=== PATIENT | female | born 1930 | race American Indian/Alaskan Native ===

== ENCOUNTER 2016-07-29 18:14 | Inpatient (IN) | payer MEDICARE ==
[2016-07-29] MEDS ORDERED: DUONEB 0.5 MG-3 MG/3 ML SOLN IH ONE (22:37)
[2016-07-29] MEDS ORDERED: DELTASONE PO ONE (22:37)
[2016-07-29 23:21] LABS: Basophils % (Auto) 0.4 % (0.0-1.8); Eosinophils % (Auto) 1.9 % (0.0-4.3); Hematocrit 40.7 % (30.3-42.9); Hemoglobin 13.4 gm/dl (10.1-14.3); Mean Corpuscular HGB Conc 33 % (30-34); Mean Corpuscular Hemoglobin 28 pg (28-32); Mean Corpuscular Volume 85 fl (79-97); Platelet Count 284 K/mm3 (140-440); Red Blood Count 4.82 M/mm3 (3.65-5.03); Red Cell Distribution Width 14.7 % (13.2-15.2); White Blood Count 10.6 K/mm3 (4.5-11.0)
[2016-07-29 23:39] LABS: Creatine Kinase MB 2.4 ng/mL (0.0-4.0)
[2016-07-29 23:41] LABS: Anion Gap 19 mmol/L; Blood Urea Nitrogen 16 mg/dL (7-17); Carbon Dioxide 24 mmol/L (22-30); Chloride 100.8 mmol/L (98-107); Creatine Kinase 235 units/L (30-135); Glucose 105 mg/dL (65-100); Potassium 3.8 mmol/L (3.6-5.0); Sodium 140 mmol/L (137-145)
[2016-07-29 23:42] LABS: INR 1.07 (0.87-1.13)
--- NOTE | 2016-07-30 00:40 | Emergency Department Report ---
ED Shortness of Breath HPI - General Chief Complaint: Adult Asthma Stated Complaint: ZEE Time Seen by Provider: 07/29/16 22:27 Source: patient Mode of arrival: Ambulatory Limitations: No Limitations - History of Present Illness Initial Comments: 85-year-old female the past medical history asthma, hypertension, and anxiety presents to the hospital complaints of shortness of breath for 3 days. Patient complains of dyspnea on exertion. In triage patient had expiratory wheeze in the left upper lung. No treatments were given prior to my evaluation. Patient denies pain, calf tenderness, fever, or cough. Intermittent ankle and lower extremity edema reported. No previous history intubations. - Related Data Allergies Allergy/AdvReac Type Severity Reaction Status Date / Time Penicillins AdvReac Itching Verified 07/29/16 18:36 ED Review of Systems ROS: Stated complaint: ZEE Other details as noted in HPI Comment: All other systems reviewed and negative Other: Constitutional: No fevers chills Eyes: No eye pain visual changes ENT: No ear pain or throat pain Neck: Denies pain Respiratory: Denies cough wheezing Cardiovascular: Denies chest pain, palpitations, syncope GI: Denies abdominal pain, nausea, vomiting, diarrhea : Denies dysuria Musculoskeletal: Denies back pain Skin: Denies rash, lesions, erythema Neurologic: Denies headache, numbness, weakness Psychiatric: Denies suicidal ideation, hallucinations ED Past Medical Hx - Past Medical History Previous Medical History?: Yes Hx Hypertension: Yes Hx Psychiatric Treatment: Yes (Anxiety) Hx Asthma: Yes - Surgical History Past Surgical History?: No - Social History Smoking Status: Never Smoker Substance Use Type: None ED Physical Exam - General Limitations: No Limitations - Other Other exam information: General: No limitations, patient is alert in no acute distress Head exam: Atraumatic, normocephalic Eyes exam: Normal appearance ENT: Moist mucous membrane, normal oropharynx Neck exam: Normal inspection, full range of motion, no meningismus nontender Respiratory exam: Clear to auscultation bilateral, no wheezes, rales, crackles Cardiovascular: Normal rate and rhythm Abdomen: Soft, nondistended, and nontender, with normal bowel sounds, no rebound, or guarding Extremity: Full range of motion normal inspection no deformity, no calf tenderness or edema Back: Normal Inspection, full range of motion, no tenderness Neurologic: Alert, oriented x3, cranial nerves intact, no motor or sensory deficit Psychiatric: normal affect, normal mood Skin: Warm, dry, intact ED Course Vital Signs 07/29/16 07/29/16 18:30 22:19 Temperature 98.8 F Pulse Rate 78 Respiratory 22 20 Rate Blood Pressure 145/78 O2 Sat by Pulse 100 100 Oximetry - Reevaluation(s) Reevaluation #1: 07/30/16 00:59 Patient did not have any wheezing on my initial exam. Patient received albuterol and by mouth prednisone with improvement and shortness of breath. 07/30/16 01:00 - Consultations Consultation #1: 07/30/16 00:55 case d/w DR. Mullen pulmonary, rec admission, npo, thoracentesis in am ED Medical Decision Making - Lab Data Result diagrams: 07/29/16 23:01 07/29/16 23:01 Lab Results 07/29/16 07/29/16 07/29/16 Range/Units 23:01 23:01 23:01 WBC 10.6 (4.5-11.0) K/mm3 RBC 4.82 (3.65-5.03) M/mm3 Hgb 13.4 (10.1-14.3) gm/dl Hct 40.7 (30.3-42.9) % MCV 85 (79-97) fl MCH 28 (28-32) pg MCHC 33 (30-34) % RDW 14.7 (13.2-15.2) % Plt Count 284 (140-440) K/mm3 Lymph % (Auto) 42.3 H (13.4-35.0) % [place] % (Auto) 9.3 H (0.0-7.3) % Eos % (Auto) 1.9 (0.0-4.3) % Baso % (Auto) 0.4 (0.0-1.8) % Lymph # 4.5 (1.2-5.4) K/mm3 [place] # 1.0 H (0.0-0.8) K/mm3 Eos # 0.2 (0.0-0.4) K/mm3 Baso # 0.0 (0.0-0.1) K/mm3 Seg Neutrophils % 46.1 (40.0-70.0) % Seg Neutrophils # 4.9 (1.8-7.7) K/mm3 PT 13.8 (12.2-14.9) Sec. INR 1.07 (0.87-1.13) Sodium 140 (137-145) mmol/L Potassium 3.8 (3.6-5.0) mmol/L Chloride 100.8 (98-107) mmol/L Carbon Dioxide 24 (22-30) mmol/L Anion Gap 19 mmol/L BUN 16 (7-17) mg/dL Creatinine 0.8 (0.7-1.2) mg/dL Estimated GFR > 60 ml/min BUN/Creatinine Ratio 20.00 % Glucose 105 H (65-100) mg/dL Calcium 8.0 L (8.4-10.2) mg/dL Total Creatine Kinase 235 H (30-135) units/L CK-MB (CK-2) 2.4 (0.0-4.0) ng/mL CK-MB (CK-2) Rel Index 1.0 (0-4) Troponin T 0.015 (0.00-0.029) ng/mL NT-Pro-B Natriuret Pep 54.66 (0-900) pg/mL - EKG Data -: EKG Interpreted by Me (nsr rate71, LAS, no stemi/t inv) - Radiology Data Radiology results: image reviewed (cxr: left pleural effusion (aprox 25%) read by me. ) - Medical Decision Making Patient has a left pleural effusion. Case was discussed with utilization management um nurse technical marketing engineer is Dr. Mullen. Recommend nothing by mouth for possible thoracentesis in the a.m. Patient be admitted to the hospitalist. Otherwise stable with improvement in respiratory symptoms after nebulized treatment - Differential Diagnosis asthma, pneumonia, PE, effusion, unstable angina Critical Care Time: No Critical care attestation.: If time is entered above; I have spent that time in minutes in the direct care of this critically ill patient, excluding procedure time. ED Disposition Clinical Impression: Dyspnea, Pleural effusion, left, Asthma exacerbation Disposition: OP ADMITTED IP TO THIS HOSP Is pt being admited?: Yes Condition: Stable Time of Disposition: 00:40 (Dr. Dacosta/hosp)
[2016-07-30] MEDS ORDERED: ZOFRAN IV PRN (02:41)
[2016-07-30] MEDS ORDERED: TYLENOL PO PRN (02:41)
[2016-07-30] MEDS ORDERED: MILK OF MAGNESIA PO PRN (02:41)
[2016-07-30] MEDS ORDERED: DULCOLAX PR PRN (02:41)
--- NOTE | 2016-07-30 02:45 | History and Physical Report ---
History of Present Illness Date of examination: 07/30/16 History of present illness: 85-year-old woman with a history of hypertension, asthma, depression comes emergency room complaints of shortness of breath started today. She denies any PND, orthopnea, edema, chest pain, previous history of fluid on lungs . s/p prednisone and nebulizer treatment in ER. Patient denies chest pain, palpitation, cough, abdominal pain, hematochezia, dysuria, frequency, focal weakness, dysarthria, fever chills, polydipsia polyuria, hot or cold intolerance, easy bruisability, or rash or bleeding from mucosal membrane, rhinorrhea, epistaxis, earache, tinnitus, blurry vision, eye discharge, anxiety, depression. Other review of systems negative PAST SURGICAL HISTORY: Vein stripping SOCIAL HISTORY: Denies alcohol, tobacco, drugs FAMILY HISTORY: Hypertension Medications and Allergies Allergies Allergy/AdvReac Type Severity Reaction Status Date / Time egg Allergy Vomiting Verified 07/30/16 22:43 Penicillins AdvReac Itching Verified 07/29/16 18:36 Home Medications Medication Instructions Recorded Confirmed Last Taken Type Losartan/Hydrochlorothiazide 1 tab PO QDAY 07/30/16 07/30/16 07/29/16 History [Hyzaar 50-12.5 TAB] NIFEdipine XL [Procardia Xl] 60 mg PO QDAY 07/30/16 07/30/16 07/29/16 History Sertraline HCl [Zoloft] 50 mg PO DAILY 07/30/16 07/30/16 07/29/16 History ALBUTEROL Inhaler [ProAir HFA 2 puff IH QID PRN #1 can 08/01/16 Unknown Rx Inhaler] Fluticasone/Salmeterol [Advair 1 puff IH BID #1 blst.w.dev 08/01/16 Unknown Rx Diskus 100-50 mcg] Levofloxacin [Levaquin TAB] 500 mg PO QDAY #5 tablet 08/01/16 Unknown Rx Prednisone [predniSONE 10 mg 10 mg PO .TAPER #1 tab.ds.pk 08/01/16 Unknown Rx (6-Day Pack, 21 Tabs)] Exam - Physical Exam Narrative exam: Gen. appearance: Patient lying in bed, no apparent distress HEENT: Normocephalic, atraumatic, pupils equally round and reactive to light, extraocular movement intact, and no sclericterus,. No JVD or thyromegaly or nodule,neck supple, no carotid bruit ,mucous membranes moist, no exudate or erythema Heart: S1, S2, regular rate and rhythm Lungs: Clear to auscultation bilaterally, breathing comfortable Abdomen: Positive bowel sounds, nontender, nondistended, no organomegaly Extremity: No edema, cyanosis, clubbing Skin: No rash, nodules, warm, dry Neuro: Oriented 3, cranial nerves II-12 intact, speech is fluent, motor and sensory intact - Constitutional Vitals: Temp Pulse Resp BP Pulse Ox 98.8 F 83 18 145/77 97 07/29/16 18:30 07/30/16 02:07 07/30/16 02:07 07/30/16 02:07 07/30/16 02:07 Results - Labs CBC & Chem 7: 08/01/16 04:21 08/01/16 04:21 Labs: Abnormal lab results 07/29/16 07/29/16 Range/Units 23:01 23:01 Lymph % (Auto) 42.3 H (13.4-35.0) % [place] % (Auto) 9.3 H (0.0-7.3) % [place] # 1.0 H (0.0-0.8) K/mm3 Glucose 105 H (65-100) mg/dL Calcium 8.0 L (8.4-10.2) mg/dL Total Creatine Kinase 235 H (30-135) units/L - Imaging and Cardiology EKG: image reviewed Chest x-ray: image reviewed Assessment and Plan Left pleural effusion COPD exacerbation, probable Hypertension Depression Admit to medicine Consult pulmonary for thoracentesis, check cardiac enzymes Start prednisone, nebulizer treatment continue appropiateoutpatient medications and start DVT prophylaxis
[2016-07-30] MEDS ORDERED: PROAIR IH PRN (02:50)
[2016-07-30] MEDS ORDERED: PROVENTIL IH PRN (03:19)
[2016-07-30] MEDS ORDERED: PROVENTIL IH SCH (04:00)
[2016-07-30 04:26] LABS: Creatine Kinase MB 2.3 ng/mL (0.0-4.0)
[2016-07-30 04:27] LABS: Creatine Kinase 233 units/L (30-135)
--- NOTE | 2016-07-30 07:47 | Admit Criteria Form ---
Admission Criteria Documentation: PLEURAL EFFUSION Clinical Indications for Admission to Inpatient Care (Place 'X' for any and all applicable criteria): Admission is indicated for ANY ONE of the following (1)(2)(3): [ ]I. Pneumonia-related effusion requiring drainage as indicated by ANY ONE of the following [A]: [ ]a) Large pleural effusion (symptomatic or greater than one-half of hemithorax) [ ]b) Loculated effusion [ ]c) Pleural thickening [ ]d) Pleural fluid analysis results, including ANY ONE of the following: [ ]i) Positive Gram stain or culture for bacteria [ ]ii) Pus [ ]iii) pH less than 7.20 [ X]II. Inpatient admission required rather than observation care (Also use Pleural Effusion: Observation Care criteria as appropriate) because of ANY ONE of the following: [ ]a) Hemodynamic instability that is severe or persistent [ ]b) Respiratory distress that is severe or persistent [ ]c) Complication of drainage (e.g., pneumothorax) that requires inpatient care [ ]d) Etiology that requires inpatient care (e.g., pulmonary embolism , trauma) [ ]e) Severe pain requiring acute inpatient management [ ]f) Supplemental O2 or respiration drug for over 24 hrs that are performable only in an inpatient setting [ ]g) Chest tube placement with active evacuation (e.g., suction, drainage) [ ]h) Pulmonary artery catheter monitoring [ ]i) Epidural analgesia (8) [ ]j) Continuous IV infusion of anticoagulation, platelet inhibitor, vasoactive, or antiarrhythmic medication. [X ]k) Other condition, treatment or monitoring requiring inpatient admission [ ]l) Immediate inpatient surgery [ ]III. Hemothorax [ ]IV. Empyema [ ]V. Pleural effusion with concomitant pneumothorax [ ]. Recurrent or malignant pleural effusion requiring pleurodesis (4) Extended stay beyond goal length of stay may be needed for (27)(28): [ ]a) Empyema or complicated parapneumonic effusion (24)(29) [ ]b) Malignant pleural effusion (4) [ ]c) Pleural effusion due to trauma or perforated esophagus [ ]d) Pleural effusion due to pulmonary embolism (30) [ ]e) Clinically significant re-expansion pulmonary edema [ ]f) Hemothorax [ ]g) Renal failure [ ]h) Trapped lung (e.g., benign or malignant thickened pleura preventing lung re-expansion) (31) [ ]i) Underlying etiology necessitates ongoing inpatient care (e.g., pneumonia, heart failure, malignancy) [ ]j) Complications of thoracentesis, thoracostomy tube, or pleural cath. placement The original [facility] content created by [facility] has been revised. The portions of the content which have been revised are identified through the use of italic text or in bold, and [facility] has neither reviewed nor approved the modified material. All other unmodified content is copyright [facility]. Please see references footnoted in the original [facility] [employer] [employer] edition 2016 Admission Criteria Met: Yes
[2016-07-30] MEDS ORDERED: PULMICORT IH ONE (08:02)
[2016-07-30] MEDS ORDERED: DUONEB 0.5 MG-3 MG/3 ML SOLN IH ONE (08:02)
[2016-07-30] MEDS: DUONEB 0.5 MG-3 MG/3 ML SOLN IH SCH ×3 (08:09→20:38)
[2016-07-30] MEDS: PULMICORT IH SCH ×2 (08:09→20:38)
[2016-07-30] MEDS: BROVANA NEBU IH SCH ×2 (08:10→20:38)
[2016-07-30 09:29] LABS: Creatine Kinase MB 2.2 ng/mL (0.0-4.0)
[2016-07-30 09:31] LABS: Creatine Kinase 241 units/L (30-135)
--- NOTE | 2016-07-30 09:50 | XRay Report ---
CHEST 2 VIEWS INDICATION: Shortness of breath. COMPARISON: None similar at this institution. FINDINGS: PA and lateral chest radiographs demonstrate top normal heart size. Aortic knob calcifications. Left lower lung densities may represent any combination of atelectasis/scarring/small pleural fluid with partly obscured left hemidiaphragm. A large, approximately 12-13 cm hiatal hernia suspected. Clear remainder lungs. Demineralized bones with mild, age-appropriate degenerative changes. CONCLUSION: Left lower lung opacities suspected in this patient with a large hiatal hernia, as described. Please correlate. Thank you for the opportunity to participate in this patient's care.
[2016-07-30] MEDS ORDERED: NON-FORMULARY (Fluticasone/Salmeterol [Advair Diskus 100-50 Mcg] 1 PUFF) IH SCH (10:00)
--- NOTE | 2016-07-30 11:22 | Consultation ---
History of Present Illness Consult date: 07/30/16 Requesting physician: CECIL MORENO Reason for consult: pneumonia, pleural effusion History of present illness: PULMONARY/CCM CONSULT NOTE (Full dictation # [id number]) Please see dictated notes for full details Medications and Allergies Allergies Allergy/AdvReac Type Severity Reaction Status Date / Time Penicillins AdvReac Itching Verified 07/29/16 18:36 Home Medications Medication Instructions Recorded Confirmed Last Taken Type ALBUTEROL Inhaler [Proair] 2 puff IH QID PRN 07/30/16 07/30/16 07/29/16 History Fluticasone/Salmeterol [Advair 1 puff IH BID 07/30/16 07/30/16 07/29/16 History Diskus 100-50 mcg] Losartan/Hydrochlorothiazide 1 tab PO QDAY 07/30/16 07/30/16 07/29/16 History [Hyzaar 50-12.5 TAB] NIFEdipine XL [Procardia Xl] 60 mg PO QDAY 07/30/16 07/30/16 07/29/16 History Sertraline HCl [Zoloft] 50 mg PO DAILY 07/30/16 07/30/16 07/29/16 History Active Meds: Active Medications Acetaminophen (Tylenol) 650 mg PO Q4H PRN PRN Reason: Pain MILD(1-3)/Fever >100.5/[place] Albuterol (Proventil) 2.5 mg IH QIDRT PRN PRN Reason: Shortness Of Breath Albuterol/Ipratropium (Duoneb 0.5 Mg-3 Mg/3 Ml Soln) 1 ampul IH Q6HRT [facility] Last Admin: 07/30/16 08:09 Dose: 1 ampul Arformoterol Tartrate (Brovana Nebu) 15 mcg IH Q12HRT [facility] Last Admin: 07/30/16 08:10 Dose: Not Given Bisacodyl (Dulcolax) [address] QDAY PRN PRN Reason: Constipation unrelieved by MOM Budesonide (Pulmicort) 0.5 mg IH Q12HRT [facility] Last Admin: 07/30/16 08:09 Dose: 0.5 mg Enoxaparin Sodium (Lovenox) 40 mg SUB-Q QDAY [facility] Hydrochlorothiazide (Hctz) 12.5 mg PO QDAY [facility] Losartan Potassium (Cozaar) 50 mg PO QDAY [facility] Magnesium Hydroxide (Milk Of Magnesia) 30 ml PO Q4H PRN PRN Reason: Constipation Nifedipine (Procardia Xl) 60 mg PO QDAY [facility] Ondansetron HCl (Zofran) 4 mg IV Q8H PRN PRN Reason: N/V unrelieved by Reglan Prednisone (Deltasone) 60 mg PO QDAY [facility] Sertraline HCl (Zoloft) 50 mg PO DAILY [facility] Physical Examination Vital signs: Vital Signs Temp Pulse Resp BP Pulse Ox 98.8 F 78 22 145/78 100 07/29/16 18:30 07/29/16 18:30 07/29/16 18:30 07/29/16 18:30 07/29/16 18:30 Results - Laboratory Findings CBC and BMP: 07/29/16 23:01 07/29/16 23:01 PT/INR, D-dimer PT 13.8 Sec. (12.2-14.9) 07/29/16 23:01 INR 1.07 (0.87-1.13) 07/29/16 23:01 Abnormal lab findings: Abnormal Labs 07/30/16 07/30/16 02:55 08:54 Total Creatine Kinase 233 H 241 H
[2016-07-30] MEDS: DELTASONE PO SCH (13:00)
[2016-07-30] MEDS: HCTZ PO SCH (13:00)
[2016-07-30] MEDS: LOVENOX SUB-Q SCH (13:00)
[2016-07-30] MEDS: COZAAR PO SCH (13:57)
[2016-07-30] MEDS: PROCARDIA XL PO SCH (13:59)
[2016-07-30] MEDS: ZOLOFT PO SCH (14:01)
--- NOTE | 2016-07-30 14:42 | Event Note ---
Date: 07/30/16 Patient was admitted for shortness of breath, left pleural effusion. Patient was on IV antibiotics, breathing treatment. Patient showed some improvement. Pulmonary consult is placed.
[2016-07-30] MEDS: LEVAQUIN 750MG/150ML 750 MG/150 ML BAG IV SCH (14:50)
[2016-07-30 20:01] LABS: Total Protein 8.3 g/dL (6.3-8.2)
[2016-07-30] MEDS ORDERED: NACL 0.45% 1000 ML 1,000 ML IV SCH (21:00)
[2016-07-31] MEDS: DUONEB 0.5 MG-3 MG/3 ML SOLN IH SCH ×4 (02:16→19:32)
[2016-07-31] MEDS ORDERED: NACL ONE (03:04)
--- NOTE | 2016-07-31 04:05 | Cat Scan Report ---
FINAL REPORT PROCEDURE: CT ANGIO CHEST TECHNIQUE: Computerized tomographic angiography of the chest was performed after the IV injection of iodinated nonionic contrast including image processing. The image data was postprocessed using 2-dimensional multiplanar reformatted (MPR) and 3-dimensional (MIP and/or volume rendered) techniques. HISTORY: Chest Pain and SOB; Abnormal CXR COMPARISON: No prior studies are available for comparison. FINDINGS: Heart and pericardium: Heart size is slightly pronounced. No pericardial effusion.. Thoracic aorta: Normal. Pulmonary vasculature: Normal. Lymph nodes: No enlarged thoracic lymph nodes. Lungs: There is atelectasis and scar formation in the left lower lung. Mild chronic obstructive changes are identified throughout both lungs. The central airway is patent. Pleural space: No effusion, thickening, or pneumothorax. Musculoskeletal structures: No significant abnormality. Upper abdominal structures: There is a large fixed hiatal hernia identified this involves the entire stomach in this cavity. This does encroach on the left lower lung with some elevation of the left hemidiaphragm.. IMPRESSION: There is no evidence of pulmonary arterial emboli. Atelectasis and scarring in the left lower lung. Chronic obstructive pulmonary changes identified throughout both lungs. Large hiatal hernia identified involves the entire stomach in this cavity.
--- NOTE | 2016-07-31 04:45 | Consultation ---
CONSULTING PHYSICIANS: Emergency Room physician, Dr. Beatrice Lora and Dr. Rich. REASON FOR CONSULTATION: Shortness of breath, left pleural effusion. CHIEF COMPLAINT AND HISTORY OF PRESENT ILLNESS: The patient is an 85-year-old -[place] female with past medical history significant for a diagnosis of asthma, but she states she has not had an asthma attack for really over 10 years, also history of anxiety, came to the hospital complaining about 3 days of increasing shortness of breath, dyspnea on exertion. She was wheezing in the Emergency Room in the left upper lung rm. She mentioned occasional ankle and lower extremity edema. She was evaluated in the Emergency Room, a chest x-ray was done, it was reported as showing a left pleural effusion/infiltrate and hence the call. When I stopped by to see the lady, she was resting in bed, still a little bit of orthopnea, felt a little bit better. She stated she had a cough. It was productive of clear phlegm. She did say that there were some sick contacts at home. She denied overwhelming fevers or chills. Denied nausea, vomiting, or overt aspiration. She denies any history of tobacco use or abuse. Denies significant weight loss. Denies any new lumps, bumps, or swellings on her body. That really is as much of the history of presentation. However, as a result of the age and the symptoms and the report given to me, I did discuss with the emergency physician that we need to workup the pleural effusion a little bit more. PAST MEDICAL HISTORY: Again, significant for history of hypertension, asthma, depression. She is obese. PAST SURGICAL HISTORY: She has had vein stripping before. MEDICATIONS: She was on at the time I stopped by to see her, according to the medication administration record included the following: Tylenol 650 mg p.o. q.4h. p.r.n. mild pain, DuoNeb treatments nebulized q.6h, Brovana 15 mcg inhaled q.12h., Pulmicort 0.5 mg inhaled q.12h., Lovenox 40 mg subcutaneous daily, hydrochlorothiazide mg p.o. daily, Levaquin 750 mg IV daily, Cozaar 50 mg p.o. daily, p.r.n. milk of magnesia, nifedipine XL 60 mg p.o. daily, Zofran 4 mg IV q.8h. p.r.n. nausea and vomiting, prednisone 60 mg p.o. daily, and Zoloft 50 mg p.o. daily. ALLERGIES: Penicillin, nature of this allergy is unknown. DIET: Obese lady. Denies significant weight loss or gain in the preceding few weeks to months. FAMILY AND SOCIAL HISTORY: Lives in the community. Denies alcohol, tobacco, or illicit drug use or abuse. REVIEW OF SYSTEMS: No loss of consciousness. No new onset seizures. No new onset focal weakness. No gross hematochezia or melena. No gross hematuria or dysuria. No hematemesis. No hemoptysis. No palpitations. Complete review of systems obtained. Pertinent positives and/or negatives as in body of history above, otherwise noncontributory. PHYSICAL EXAMINATION: VITAL SIGNS: At presentation, she is afebrile, temperature 98.8, pulse was 78, respiratory rate is 22, blood pressure 145/78, oxygen sats are 100%, inspired oxygen concentration was not recorded. HEAD, EYES, EARS, NOSE, AND THROAT: Pupils are equal, round 4 mm, reactive to light. Extraocular muscle movements are intact. Grossly, no palpable lymph nodes in the supraclavicular or submandibular lymph node chains. LUNGS: Auscultation of both lung rm revealed diminished left lower lobe air entry. Occasional left lower lobe rales. No wheezing. She does have a prolonged expiratory phase and distant breath sounds. HEART: Heart sounds 1 and 2 are heard. They were regular in rate and rhythm at the time of my evaluation. ABDOMEN: Soft, full, bowel sounds are positive, nontender. EXTREMITIES: Without overt digital clubbing, cyanosis, or pedal edema. NEUROLOGIC: The exam was grossly nonfocal. LABORATORY DATA: From my review are as follows: White cell count 10,600, hemoglobin 13.4, hematocrit 40.7, platelet count 284. INR 1.07. Serum sodium was 140, potassium 3.8, chloride 101, bicarbonate 24, BUN 16, creatinine 0.8, glucose 105. CPK was up at 235. Otherwise, cardiac enzymes within normal limits. BNP was within normal limits. Radiographic studies were done. I have reviewed the radiologist's interpretation. I am attempting to pull up the chest x-ray here. He mentions the left lower lobe densities which may be a combination of atelectasis, scarring/small pleural fluid. The x-ray does show, I do feel certainly a pleural effusion on that side and then I cannot rule out again an element of atelectasis, it is going to be small volume, but no gross pneumothorax, no gross bony fracture. ASSESSMENT AND PLAN: In discussing with her further, she states she did fall about a month ago, but that the pain has resolved. Denied any hemoptysis at that time. While she does not have much of cigarette smoking history with her age, I think this process needs to be worked up a little bit further. In the absence of a significant amount of pleural effusion, I will go ahead and order a CT scan of the chest to better evaluate. Right now, I will do it with IV contrast, so I can also evaluate the mediastinum better. The plan will be ____ to drain the fluid before the CT scan, but I am not so sure if we are going to get a lot of fluid to drain. At the same time, spitting will be ordered if she is able to cough up some. Oxygen will be titrated to keep sats greater than or equal to about 92%-94%. A thoracentesis will be ordered, necessary studies. Empiric antibiotic therapy should continue. I will order a CRP level to evaluate the true infectious potential of this process. She is going to be put on GI prophylaxis. I should mention the CT scan will also help look for any rib fractures or small pneumothorax. Flu and pneumonia vaccination will be per protocol. Thank you very much for the consult Dr. Rich, Dr. Lora. We will follow along and make further recommendations as the picture progresses/becomes clearer. JOB# [id number] AJOlya/NTS
[2016-07-31 06:30] LABS: Basophils % (Auto) 0.1 % (0.0-1.8); Hematocrit 39.1 % (30.3-42.9); Hemoglobin 12.7 gm/dl (10.1-14.3); Mean Corpuscular HGB Conc 33 % (30-34); Mean Corpuscular Hemoglobin 28 pg (28-32); Mean Corpuscular Volume 84 fl (79-97); Platelet Count 277 K/mm3 (140-440); Red Blood Count 4.64 M/mm3 (3.65-5.03); White Blood Count 12.2 K/mm3 (4.5-11.0)
[2016-07-31 06:33] LABS: Anion Gap 20 mmol/L; Blood Urea Nitrogen 18 mg/dL (7-17); Calcium 8.2 mg/dL (8.4-10.2); Carbon Dioxide 22 mmol/L (22-30); Chloride 101.3 mmol/L (98-107); Glucose 172 mg/dL (65-100); Potassium 3.7 mmol/L (3.6-5.0); Sodium 140 mmol/L (137-145)
[2016-07-31] MEDS: BROVANA NEBU IH SCH ×2 (09:11→19:32)
[2016-07-31] MEDS: PULMICORT IH SCH ×2 (09:11→19:32)
--- NOTE | 2016-07-31 10:29 | Progress Note ---
Assessment and Plan - Patient Problems (1) Acute respiratory distress Current Visit: Yes Status: Acute Plan to address problem: - improved - off oxygen - continue ТАТЬЯНА, LABA & ICS - taper off prednisone - CT reveals hiatal hernia and LLL scarring/ compressive atelectasis with nothing acute looking - complete empiric AB's course (5 days) (2) Abnormal CXR (chest x-ray) Current Visit: Yes Status: Acute Plan to address problem: - atelectasis and scarring related to hiatal hernia - no rib fracture - as above otherwise (3) Asthma exacerbation Current Visit: Yes Status: Acute Plan to address problem: - as for respiratory distress above (4) Pleural effusion, left Current Visit: Yes Status: Acute Plan to address problem: - none of significance on CT chest Subjective Date of service: 07/31/16 Principal diagnosis: Acute Resp Distress; Pneumonia Interval history: Seen and examined at bedside; 24 hour events reviewed; nursing and respiratory care staff consulted; no adverse overnight events reported to me; resting peacefuly in bed; looks and feels better; denies acute chest pains or increased SOB Objective Vital Signs - 12hr 07/31/16 07/31/16 07/31/16 01:07 02:18 02:21 Temperature 97.9 F Pulse Rate [ 97 H Anterior Bilateral Throughout] Pulse Rate [ 94 H Left Dorsalis Pedis] Pulse Rate [ Right Radial] Respiratory 20 Rate Respiratory 16 Rate [Anterior Bilateral Throughout] Blood Pressure 129/66 [Right Arm] O2 Sat by Pulse 94 97 Oximetry 07/31/16 07/31/16 07/31/16 02:27 05:57 07:00 Temperature 97.8 F 98.1 F Pulse Rate [ 93 H Anterior Bilateral Throughout] Pulse Rate [ 95 H Left Dorsalis Pedis] Pulse Rate [ 94 H Right Radial] Respiratory 20 20 Rate Respiratory 18 Rate [Anterior Bilateral Throughout] Blood Pressure 122/62 136/65 [Right Arm] O2 Sat by Pulse 93 97 Oximetry 07/31/16 09:11 Temperature Pulse Rate [ Anterior Bilateral Throughout] Pulse Rate [ Left Dorsalis Pedis] Pulse Rate [ Right Radial] Respiratory Rate Respiratory Rate [Anterior Bilateral Throughout] Blood Pressure [Right Arm] O2 Sat by Pulse 95 Oximetry Constitutional: no acute distress Eyes: non-icteric ENT: oropharynx moist Neck: supple, no lymphadenopathy Effort: normal Ascultation: Left: diminished breath sounds (LLL), Bilateral: clear Gastrointestinal: normoactive bowel sounds, soft, non-tender, non-distended Integumentary: normal Extremities: no cyanosis, no edema, pulses normal, no ischemia or petechiae Neurologic: normal mental status, non-focal exam, pupils equal and round, motor strength normal and Psychiatric: mood appropriate, affect normal CBC and BMP: 07/31/16 05:10 07/31/16 05:10 ABG, PT/INR, D-dimer: PT/INR, D-dimer PT 13.8 Sec. (12.2-14.9) 07/29/16 23:01 INR 1.07 (0.87-1.13) 07/29/16 23:01 D-Dimer 279.84 ng/mlDDU (0-234) H 07/30/16 21:51 Abnormal lab findings: Abnormal Labs 07/30/16 07/30/16 07/30/16 02:55 08:54 19:06 WBC [place] # Seg Neutrophils % Seg Neutrophils # D-Dimer BUN Glucose Calcium Lactate Dehydrogenase 250 H Total Creatine Kinase 233 H 241 H Total Protein 8.3 H 07/30/16 07/31/16 07/31/16 21:51 05:10 05:10 WBC 12.2 H [place] # 0.9 H Seg Neutrophils % 74.0 H Seg Neutrophils # 9.1 H D-Dimer 279.84 H BUN 18 H Glucose 172 H Calcium 8.2 L Lactate Dehydrogenase Total Creatine Kinase Total Protein CT scan - chest: image reviewed
[2016-07-31] MEDS: LOVENOX SUB-Q SCH (10:36)
[2016-07-31] MEDS: DELTASONE PO SCH (10:36)
[2016-07-31] MEDS: HCTZ PO SCH (10:36)
[2016-07-31] MEDS: ZOLOFT PO SCH (10:37)
[2016-07-31] MEDS: COZAAR PO SCH (10:37)
[2016-07-31] MEDS: PROCARDIA XL PO SCH (10:37)
[2016-07-31] MEDS: LEVAQUIN 750MG/150ML 750 MG/150 ML BAG IV SCH (10:41)
[2016-07-31] MEDS ORDERED: PNEUMOVAX 23 IM ONE (12:00)
--- NOTE | 2016-07-31 16:47 | Progress Note ---
Assessment and Plan Assessment and plan: COPD exacerbation - Was on IV Solu-Medrol and now change to by mouth steroid - Continue IV Levaquin - Oxygen support - CTA didn't show effusion, showed left lung opacity and COPD DVT prophylaxis - Lovenox Disposition - We'll discharge her tomorrow History Interval history: Patient's shortness of breath is getting better. Hospitalist Physical - Physical exam Narrative exam: Not in cardiopulmonary distress. The patient appeared well nourished and normally developed. Vital signs as documented. Head exam is unremarkable. No scleral icterus . Neck is without jugular venous distension, thyromegaly, or carotid bruits. Lungs are clear to auscultation. Cardiac exam reveals regular rate and Rhythm. First and second heart sounds normal. No murmurs, rubs or gallops. Abdominal exam reveals normal bowel sounds, no masses, no organomegaly and no aortic enlargement. Extremities are nonedematous and both femoral and pedal pulses are normal. SPECIAL EFFECTS SPECIALIST: Alert and oriented 3. No focal weakness. - Constitutional Vitals: Temp Pulse Resp BP Pulse Ox 97.4 F L 93 H 18 114/59 99 07/31/16 13:00 07/31/16 13:43 07/31/16 13:43 07/31/16 13:00 07/31/16 10:00 Results - Labs CBC & Chem 7: 07/31/16 05:10 07/31/16 05:10 Labs: Laboratory Last Values WBC 12.2 K/mm3 (4.5-11.0) H 07/31/16 05:10 RBC 4.64 M/mm3 (3.65-5.03) 07/31/16 05:10 Hgb 12.7 gm/dl (10.1-14.3) 07/31/16 05:10 Hct 39.1 % (30.3-42.9) 07/31/16 05:10 MCV 84 fl (79-97) 07/31/16 05:10 MCH 28 pg (28-32) 07/31/16 05:10 MCHC 33 % (30-34) 07/31/16 05:10 RDW 15.0 % (13.2-15.2) 07/31/16 05:10 Plt Count 277 K/mm3 (140-440) 07/31/16 05:10 Lymph % (Auto) 18.8 % (13.4-35.0) 07/31/16 05:10 [place] % (Auto) 7.1 % (0.0-7.3) 07/31/16 05:10 Eos % (Auto) 0.0 % (0.0-4.3) 07/31/16 05:10 Baso % (Auto) 0.1 % (0.0-1.8) 07/31/16 05:10 Lymph # 2.3 K/mm3 (1.2-5.4) 07/31/16 05:10 [place] # 0.9 K/mm3 (0.0-0.8) H 07/31/16 05:10 Eos # 0.0 K/mm3 (0.0-0.4) 07/31/16 05:10 Baso # 0.0 K/mm3 (0.0-0.1) 07/31/16 05:10 Seg Neutrophils % 74.0 % (40.0-70.0) H 07/31/16 05:10 Seg Neutrophils # 9.1 K/mm3 (1.8-7.7) H 07/31/16 05:10 PT 13.8 Sec. (12.2-14.9) 07/29/16 23:01 INR 1.07 (0.87-1.13) 07/29/16 23:01 D-Dimer 279.84 ng/mlDDU (0-234) H 07/30/16 21:51 Sodium 140 mmol/L (137-145) 07/31/16 05:10 Potassium 3.7 mmol/L (3.6-5.0) 07/31/16 05:10 Chloride 101.3 mmol/L (98-107) 07/31/16 05:10 Carbon Dioxide 22 mmol/L (22-30) 07/31/16 05:10 Anion Gap 20 mmol/L 07/31/16 05:10 BUN 18 mg/dL (7-17) H 07/31/16 05:10 Creatinine 0.8 mg/dL (0.7-1.2) 07/31/16 05:10 Estimated GFR > 60 ml/min 07/31/16 05:10 BUN/Creatinine Ratio 22.50 % 07/31/16 05:10 Glucose 172 mg/dL (65-100) H 07/31/16 05:10 Calcium 8.2 mg/dL (8.4-10.2) L 07/31/16 05:10 Lactate Dehydrogenase 250 units/L (91-180) H 07/30/16 19:06 Total Creatine Kinase 241 units/L (30-135) H 07/30/16 08:54 CK-MB (CK-2) 2.2 ng/mL (0.0-4.0) 07/30/16 08:54 CK-MB (CK-2) Rel Index 0.9 (0-4) 07/30/16 08:54 Troponin T < 0.010 ng/mL (0.00-0.029) 07/30/16 08:54 NT-Pro-B Natriuret Pep 54.66 pg/mL (0-900) 07/29/16 23:01 Total Protein 8.3 g/dL (6.3-8.2) H 07/30/16 19:06
[2016-07-31] MEDS ORDERED: DELTASONE PO SCH (20:19)
[2016-08-01 04:53] LABS: Basophils % (Auto) 0.1 % (0.0-1.8); Hematocrit 38.9 % (30.3-42.9); Hemoglobin 12.5 gm/dl (10.1-14.3); Mean Corpuscular HGB Conc 32 % (30-34); Mean Corpuscular Hemoglobin 27 pg (28-32); Mean Corpuscular Volume 85 fl (79-97); Platelet Count 256 K/mm3 (140-440); Red Blood Count 4.59 M/mm3 (3.65-5.03); Red Cell Distribution Width 14.8 % (13.2-15.2); White Blood Count 12.7 K/mm3 (4.5-11.0)
[2016-08-01 05:14] LABS: BUN/Creatinine Ratio 20.9; Calcium 7.9 mg/dL (8.4-10.2)
[2016-08-01 06:40] LABS: Chloride 102.1 mmol/L (98-107); Potassium 4.1 mmol/L (3.6-5.0)
[2016-08-01] MEDS: BROVANA NEBU IH SCH (08:42)
[2016-08-01] MEDS: PULMICORT IH SCH (08:42)
[2016-08-01] MEDS: DUONEB 0.5 MG-3 MG/3 ML SOLN IH SCH (08:43)
[2016-08-01 08:45] VITALS: BP 132/58
[2016-08-01] MEDS ORDERED: LEVAQUIN PO SCH (10:00)
[2016-08-01] MEDS: COZAAR PO SCH (10:16)
[2016-08-01] MEDS: PROCARDIA XL PO SCH (10:17)
[2016-08-01] MEDS: ZOLOFT PO SCH (10:17)
[2016-08-01] MEDS: HCTZ PO SCH (10:17)
[2016-08-01] MEDS: LOVENOX SUB-Q SCH (10:19)
--- NOTE | 2016-08-01 10:20 | Discharge Summary ---
Providers - Providers Date of Admission: 07/30/16 02:41 Date of discharge: 08/01/16 Attending physician: THELMA IRENE MD Primary care physician: [employer] Hospitalization Reason for admission: COPD exacerbation Condition: Stable Hospital course: 85-year-old woman with a history of hypertension, asthma, depression comes emergency room complaints of shortness of breath started on the day of admission. She denies any PND, orthopnea, edema, chest pain, previous history of fluid on lungs . s/p prednisone and nebulizer treatment in ER. Chest x-ray shows left lower lobe opacity, CTA shows no PE no pleural effusion significant for left-sided opacity and COPD. Patient was treated for COPD exacerbation with IV Solu-Medrol, antibiotics, breathing treatment and her meds were restarted. Patient showed marked improvement and discharged home with antibiotics, tapering dose of steroids, and refilled his home COPD medications. Patient's concerns were answered to the bedside. Disposition: DISCHARGED TO HOME OR SELFCARE Time spent for discharge: 32 minutes - Discharge Diagnoses (1) COPD (chronic obstructive pulmonary disease) Status: Acute Qualifiers: COPD type: C Chronic bronchitis type: C Emphysema type: E (2) Abnormal CXR (chest x-ray) Status: Acute (3) Acute respiratory distress Status: Acute Core Measure Documentation - Palliative Care Palliative Care/ Comfort Measures: Not Applicable - Core Measures Any of the following diagnoses?: none Exam - Physical Exam Narrative exam: Not in cardiopulmonary distress. The patient appeared well nourished and normally developed. Vital signs as documented. Head exam is unremarkable. No scleral icterus . Neck is without jugular venous distension, thyromegaly, or carotid bruits. Lungs are clear to auscultation. Cardiac exam reveals regular rate and Rhythm. First and second heart sounds normal. No murmurs, rubs or gallops. Abdominal exam reveals normal bowel sounds, no masses, no organomegaly and no aortic enlargement. Extremities are nonedematous and both femoral and pedal pulses are normal. LEGAL EXECUTIVE: Alert and oriented 3. No focal weakness. - Constitutional Vitals: Temp Pulse Resp BP Pulse Ox 97.4 F L 95 H 18 132/58 97 08/01/16 08:00 08/01/16 08:00 08/01/16 08:00 08/01/16 08:00 08/01/16 08:00 Plan Activity: no restrictions Weight Bearing Status: Full Weight Bearing Diet: regular Follow up with: PRIMARY CARE, [Primary Care Provider] - 7 Days Prescriptions: ALBUTEROL Inhaler [ProAir HFA Inhaler] 2 puff IH QID PRN #1 can PRN Reason: Shortness Of Breath Fluticasone/Salmeterol [Advair Diskus 100-50 mcg] 1 puff IH BID #1 blst.w.dev Levofloxacin [Levaquin TAB] 500 mg PO QDAY #5 tablet Prednisone [predniSONE 10 mg (6-Day Pack, 21 Tabs)] 10 mg PO .TAPER #1 tab.ds.pk
== END 2016-08-01 12:11 | disposition home or self-care (01) | DRG 191 ==
LOC: ED 18:14 → 4A 07-30 02:41 → CC1 07-30 06:52 → 4A 07-30 08:58
PROVIDERS: ADMIT Internal Medicine; ATTEND Internal Medicine
PROC: 3E0234Z Introduction of Serum, Toxoid and Vaccine into Muscle, Percutaneous Approach (ICD-10-PCS; principal; 2016-07-31)
DX: J44.1 Chronic obstructive pulmonary disease with (acute) exacerbation (principal); J45.901 Unspecified asthma with (acute) exacerbation; J98.11 Atelectasis; I10 Essential (primary) hypertension; F41.9 Anxiety disorder, unspecified; F32.9 Major depressive disorder, single episode, unspecified; K44.9 Diaphragmatic hernia without obstruction or gangrene; Z88.0 Allergy status to penicillin; Z91.012 Allergy to eggs; Z82.49 Family history of ischemic heart disease and other diseases of the circulatory system; Z79.899 Other long term (current) drug therapy; Z23 Encounter for immunization
CPT/HCPCS: 36415; 71020; 71275; 80048; 82550; 82553; 83615; 83880; 84160; 84484; 85025; 85379; 85610; 90732; 93005; 93010; 94640; J1650; J1956; J7512; Q9967

== ENCOUNTER 2019-02-17 14:42 | Emergency (ER) | payer MEDICARE ==
--- NOTE | 2019-02-17 14:47 | Event Note ---
ED Screening Note Date of service: 02/17/19 Time: 14:47 ED Screening Note: This initial assessment/diagnostic orders/clinical plan/treatment(s) is/are subject to change based on patients health status, clinical progression and re- assessment by fellow clinical providers in the ED. Further treatment and workup at subsequent clinical providers discretion. Patient/guardian urged not to elope from the ED as their condition may be serious if not clinically assessed and managed. Initial orders include:
[2019-02-17 14:58] VITALS: BP 142/80
--- NOTE | 2019-02-17 15:02 | Emergency Department Report ---
Chief Complaint: High BP Stated Complaint: ELEVATED B/P Time Seen by Provider: 02/17/19 14:44 - HPI History of Present Illness: Sent from fire department for elevated bp but blood pressure stable in ED. Denies [place], Dizziness or sob. Denies pain - ROS Review of Systems: All systems are negative except elevated bp without any symptoms. no cp. no sob. H/o asthma on on meds. Denies fever or chills. denies nausea or vomiting. Has PC P and takes BP medication - Exam Vital Signs: Vital Signs 02/17/19 02/17/19 14:49 14:58 Temperature 98.1 F Pulse Rate 60 Respiratory 16 Rate Blood Pressure 109/76 Blood Pressure 142/80 [Left] O2 Sat by Pulse 97 Oximetry Physical Exam: A&O x4 NAD. GCS 15 VSS, AFEB Lungs, CTAB CV: S1S2 RRR EXT: No CCE. +2 pulses MSE screening note: Focused history and physical exam performed. Due to findings the following was ordered: Blood pressure stable. d/c home to follow up with PCP in 2 days Patient discussed with doctor:: HANNAH RUTH ED Disposition for MSE Clinical Impression: Hypertension Qualifiers: Hypertension type: essential hypertension Qualified Code(s): I10 - Essential (primary) hypertension Disposition: DC-01 TO HOME OR SELFCARE Is pt being admited?: No Does the pt Need Aspirin: No Condition: Stable Instructions: Hypertension (ED) Additional Instructions: Please take your blood pressure daily and keep a log and bring to PCP visit in 2 days If condition worsens please return to ED Referrals: Your, Primary care physician [Other] - 2-3 Days Time of Disposition: 15:11
== END 2019-02-17 15:26 | disposition home or self-care (01) ==
LOC: ED 14:42
DX: I10 Essential (primary) hypertension (principal); J45.909 Unspecified asthma, uncomplicated; Z79.899 Other long term (current) drug therapy; Z91.012 Allergy to eggs; Z88.0 Allergy status to penicillin